=== PATIENT | male | born 1995 | race Caucasian/White ===

== ENCOUNTER 2017-12-12 14:03 | Emergency (ER) | payer BC ==
[2017-12-12] MEDS ORDERED: NS 1,000 ML IV ONE (14:52)
[2017-12-12 15:10] LABS: PLATELET COUNT 195 10^3/uL (150-400)
--- NOTE | 2017-12-12 15:19 | EDPHY ---
H & P Smoking Status: Current some day smoker Time Seen by Provider: 12/12/17 14:30 HPI/ROS: CHIEF COMPLAINT: Abdominal pain HISTORY OF PRESENT ILLNESS: 22-year-old male presents to the emergency department complaining of intermittent abdominal pain over last 3-4 weeks. He states that 1 month ago he had a week of vomiting and diarrhea. His symptoms improved. He went to see a primary care provider. He states that his abdominal pain returned few days later and now has had mostly right-sided although diffuse abdominal pain intermittently for the last few weeks. He has also had occasional groin pain. He denies any testicular pain or swelling now. No urinary symptoms. No back pain. No chest pain or difficulty breathing. No fevers or chills. No reported trauma. He states his appetite has been normal. He had 2 days of diarrhea recently. No blood in his stool. No recent antibiotics. No recent travel. REVIEW OF SYSTEMS: Constitutional: No fever, no chills. Eyes: No double or blurry vision. ENT: No sore throat. Respiratory: No cough, no shortness of breath. Cardiac: No chest pain. Gastrointestinal: Abdominal pain and diarrhea as above. No vomiting. Genitourinary: No dysuria. Musculoskeletal: No neck or back pain. Skin: No rashes. Neurological: No headache. (AdrienneKendra sosa) Past Medical/Surgical History: Negative (Kendra Oh) Social History: Recent college graduate with [employer] science degree. (AdrienneKendra sosa) Physical Exam: General Appearance: Alert, no distress. Eyes: Pupils equal and round. Extraocular motions are all intact. ENT: Mouth: Mucous membranes moist. Respiratory: No wheezing, rhonchi, or rales, lungs are clear to auscultation. Cardiovascular: Regular rate and rhythm. Gastrointestinal: Abdomen is soft. Tenderness with palpation in the right lower quadrant. There is no rebound, guarding or masses noted. No CVA tenderness bilaterally. Genitourinary: Performed with nurseJeffrey, at bedside. Circumcised penis. Both testicles descended. Not swollen. No tenderness bilaterally. No palpable inguinal hernia bilaterally. Neurological: Alert and oriented x 3, cranial nerves II through XII grossly intact Skin: Warm and dry, no rashes. Musculoskeletal: Nontender to palpate along the cervical, thoracic or lumbar spine. Neck is supple. Extremities: Full range of motion and no peripheral edema. Psychiatric: Patient is oriented X 3, there is no agitation. (Kendra Oh) Constitutional: Initial Vital Signs Temperature (C) 36.8 C 12/12/17 14:15 Heart Rate 83 12/12/17 14:15 Respiratory Rate 18 12/12/17 14:15 Blood Pressure 138/90 H 12/12/17 14:15 O2 Sat (%) 97 12/12/17 14:15 O2 Delivery Mode Room Air Allergies/Adverse Reactions: No Known Allergies Allergy (Unverified 12/12/17 14:14) Home Medications: Medication Instructions Recorded Albuterol 12/12/17 Flonase Allergy Relief 12/12/17 Fluticasone Furoate 12/12/17 levOFLOXACIN [levAQUIN (*)] 750 mg PO DAILY #10 tab 12/12/17 Medical Decision Making ED Course/Re-evaluation: 22-year-old male presents emergency department with right-sided abdominal pain. On examination the patient does have pain in the right lower quadrant specifically at McBurney's point. He has normal laboratory studies. Urine is pending. I explained to the patient that I was concerned about possible acute appendicitis given the location of his pain. I recommended CT scan of the abdomen pelvis. I discussed pros and cons including radiation exposure with the patient and he agrees with CT scan. The case was discussed with Dr. Dalton Clarke, secondary supervising physician, who did not directly evaluate the patient but agrees with treatment and plan. He agrees with CT scan. CT imaging reveals a normal appearing appendix however the appendix is retrocecal and the fat surrounding the appendix is edematous. The radiologist was questioning possible early appendicitis. This was discussed with Dr. Dalton Clarke who recommended calling Dr. Ramses Nichols. I spoke with Dr. Kirk Nichols at 4:05 p.m. who agrees to come evaluate this patient in the emergency department. The patient was kept NPO. (Kendra Oh ) Differential Diagnosis: Including but not limited to acute appendicitis, urinary tract infection, pyelonephritis, epididymitis, sexually transmitted infection, testicular torsion , colitis, kidney stone (Kendra Oh) Other Provider: Spoke with Dr. Nichols, general surgeon. He has consulted the patient and is comfortable with discharge home for this patient. Plan to d/c home in good condition. Referral to GI provided. He is comfortable with this plan. (Dalton Clarke) Care Turn Over: Care will be turned over to Dr. Dalton Clarke at 5:00 p.m., shift change. Awaiting evaluation by surgeon, Dr. Ramses Nichols. (Kendra Oh) - Data Points Laboratory Results: Laboratory Results 12/12/17 14:45 12/12/17 14:45 Medications Given: Discontinued Medications Sodium Chloride (Ns) 1,000 mls @ 0 mls/hr IV ONCE ONE PRN Reason: Wide Open Stop: 12/12/17 14:53 Last Admin: 12/12/17 14:55 Dose: 1,000 mls Levofloxacin (Levaquin) 750 mg PO EDNOW ONE PRN Reason: Protocol Stop: 12/12/17 17:48 Last Admin: 12/12/17 17:57 Dose: 750 mg Departure - Departure Disposition: Home, Routine, Self-Care Clinical Impression: Abdominal pain Qualifiers: Abdominal location: right lower quadrant Qualified Code(s): R10.31 - Right lower quadrant pain Condition: Good Instructions: Abdominal Pain (ED) Additional Instructions: Follow up with your primary care provider or a GI specialist. We have provided a referral to a local GI specialist. Return to the emergency department for worsening or changing pain, uncontrollable vomiting or diarrhea, fever, or other worsening of condition. Referrals: [facility] [Other] - As per Instructions Rhea Mcdonald MD [Medical Doctor] - As per Instructions Kirk Nichols MD [Medical Doctor] - As per Instructions Stand Alone Forms: School Excuse Prescriptions: levOFLOXACIN [levAQUIN (*)] 750 mg PO DAILY #10 tab
[2017-12-12] MEDS ORDERED: IOPAMIDOL (ISOVUE-300) 100 ML BTL ONE (15:37)
[2017-12-12 18:12] VITALS: BP 129/87
== END 2017-12-12 18:12 | disposition home or self-care (01) ==
DX: R10.31 Right lower quadrant pain (principal); F17.200 Nicotine dependence, unspecified, uncomplicated
CPT/HCPCS: Q9967